=== PATIENT | male | born 1945 | race Caucasian/White ===

== ENCOUNTER 2017-11-28 14:46 | Inpatient (IN) | payer MEDICARE ==
[2017-11-28 15:08] LABS: ADD MAN DIFF? NO
[2017-11-28 15:11] LABS: BASOPHIL # 0.1 10^3/ul (0.0-0.1); BASOPHILS % 0.7 % (0.0-2.0); EOSINOPHILS # 0.1 10^3/ul (0.0-0.5); EOSINOPHILS % 1.2 % (0.0-7.0); HEMATOCRIT 31.9 % (42.0-52.0); HEMOGLOBIN 9.7 g/dl (14.0-18.0); LYMPHOCYTES # 0.9 10^3/ul (0.8-2.9); LYMPHOCYTES % 7.3 % (15.0-51.0); MEAN CORPUSCULAR HEMOGLOBIN 26.6 pg (29.0-33.0); MEAN CORPUSCULAR HGB CONC 30.4 g/dl (32.0-37.0); MEAN CORPUSCULAR VOLUME 87.6 fl (82.0-101.0); MEAN PLATELET VOLUME 11.1 fl (7.4-10.4); MONOCYTE # 0.9 10^3/ul (0.3-0.9); MONOCYTES % 7.3 % (0.0-11.0); NEUTROPHIL # 9.6 10^3/ul (1.6-7.5); PLATELET COUNT 175 10^3/UL (140-415); RED BLOOD COUNT 3.64 10^6/ul (4.70-6.10); RED CELL DISTRIBUTION WIDTH 18.1 % (11.5-14.5)
[2017-11-28 15:11] LABS: WHITE BLOOD COUNT 11.6 10^3/ul (4.8-10.8)
[2017-11-28] MEDS ORDERED: DEXTROSE 50% 50 ML SYRINGE (15:14)
[2017-11-28] MEDS: DEXTROSE 50% 50 ML SYRINGE IV (15:22)
[2017-11-28 15:26] LABS: LACTIC ACID 1.2 mmol/L (0.5-2.0)
[2017-11-28 15:28] LABS: HEMOGLOBIN A1C 6.8 % (0-5.9)
[2017-11-28 15:30] LABS: INR 1.18; PROTIME 15.2 Sec (11.9-14.9); PT RATIO 1.2
[2017-11-28 15:31] LABS: PARTIAL THROMBOPLASTIN TIME 40.4 Sec (25.0-35.0)
[2017-11-28 16:09] LABS: ALANINE AMINOTRANSFERASE 24 IU/L (13-69); ALBUMIN 3.1 g/dl (3.3-4.9); ALBUMIN/GLOBULIN RATIO 0.77; ALKALINE PHOSPHATASE 89 IU/L (42-121); ANION GAP 18 (8-16); ASPARTATE AMINO TRANSFERASE 26 IU/L (15-46); BILIRUBIN,INDIRECT 0.3 mg/dl (0-1.1); BILIRUBIN,TOTAL 0.3 mg/dl (0.2-1.3); BLOOD UREA NITROGEN 41 mg/dl (7-20); CALCIUM 8.3 mg/dl (8.4-10.2); CARBON DIOXIDE 26 mmol/L (21-31); CHLORIDE 99 mmol/L (97-110); CHOLESTEROL 67 mg/dl (100-200); CREATINE KINASE 135 IU/L (23-200); CREATININE 3.33 mg/dl (0.61-1.24); GLUCOSE 82 mg/dl (70-220); HDL CHOLESTEROL 22 mg/dl (31-75); LDL CHOLESTEROL,CALCULATED 29 mg/dl; POTASSIUM 4.7 mmol/L (3.5-5.1); SODIUM 138 mmol/L (135-144); TOTAL PROTEIN 7.1 g/dl (6.1-8.1); TRIGLYCERIDES 81 mg/dl (0-149)
[2017-11-28 16:20] LABS: CK INDEX 0.6
[2017-11-28 16:26] LABS: CK-MB 0.79 ng/ml (0.0-2.4)
[2017-11-28 16:27] LABS: TROPONIN-I 0.131 ng/ml (0.00-0.12)
[2017-11-28] MEDS: ASPIRIN 300 MG SUPP PR (17:47)
[2017-11-28 18:02] LABS: LACTIC ACID 1.1 mmol/L (0.5-2.0)
[2017-11-28] MEDS ORDERED: morphine 2 MG INJ IV (19:30)
[2017-11-28] MEDS ORDERED: ONDANSETRON 4 MG INJ IV (19:30)
[2017-11-28] MEDS ORDERED: NACL 0.9% 3 ML SYG IV (19:30)
[2017-11-28] MEDS: SOD CHLORIDE 0.45% 1,000 ML IV (19:33)
[2017-11-29] MEDS: DEXTROSE 5%-0.45% NACL 1,000 ML IV ×2 (00:24→23:34)
[2017-11-29] MEDS: HEPARIN 5,000 UNIT/0.5 ML VIAL SC ×3 (00:25→21:00)
[2017-11-29] MEDS ORDERED: GLUCAGON 1 MG INJ IM (00:30)
[2017-11-29] MEDS ORDERED: GLUCOSE GEL 15 GRAM TUBE BUCCAL (00:30)
[2017-11-29] MEDS ORDERED: DEXTROSE 50% 50 ML SYRINGE IV ×2 (00:30)
[2017-11-29] MEDS ORDERED: GLUCOSE GEL 15 GRAM TUBE PO ×2 (00:30)
[2017-11-29] MEDS: ACCU-CHEK XX (02:00)
[2017-11-29] MEDS: PANTOPRAZOLE 40 MG INJ IV (05:10)
[2017-11-29 05:50] LABS: ADD MAN DIFF? NO
[2017-11-29 05:55] LABS: WHITE BLOOD COUNT 10.4 10^3/ul (4.8-10.8)
[2017-11-29 05:55] LABS: BASOPHIL # 0.1 10^3/ul (0.0-0.1); BASOPHILS % 0.7 % (0.0-2.0); EOSINOPHILS # 0.1 10^3/ul (0.0-0.5); EOSINOPHILS % 1.1 % (0.0-7.0); HEMATOCRIT 31.1 % (42.0-52.0); HEMOGLOBIN 9.5 g/dl (14.0-18.0); LYMPHOCYTES # 0.8 10^3/ul (0.8-2.9); LYMPHOCYTES % 7.6 % (15.0-51.0); MEAN CORPUSCULAR HEMOGLOBIN 26.2 pg (29.0-33.0); MEAN CORPUSCULAR HGB CONC 30.5 g/dl (32.0-37.0); MEAN CORPUSCULAR VOLUME 85.9 fl (82.0-101.0); MEAN PLATELET VOLUME 10.9 fl (7.4-10.4); MONOCYTE # 0.8 10^3/ul (0.3-0.9); MONOCYTES % 7.7 % (0.0-11.0); NEUTROPHIL # 8.6 10^3/ul (1.6-7.5); NEUTROPHILS % 82.5 % (39.0-77.0); PLATELET COUNT 169 10^3/UL (140-415); RED BLOOD COUNT 3.62 10^6/ul (4.70-6.10); RED CELL DISTRIBUTION WIDTH 18.2 % (11.5-14.5)
[2017-11-29 06:13] LABS: HEMOGLOBIN A1C 6.3 % (0-5.9)
[2017-11-29 06:19] LABS: ANION GAP 17 (8-16); BLOOD UREA NITROGEN 43 mg/dl (7-20); CALCIUM 8.2 mg/dl (8.4-10.2); CARBON DIOXIDE 28 mmol/L (21-31); CHLORIDE 99 mmol/L (97-110); CHOLESTEROL 67 mg/dl (100-200); CREATININE 3.61 mg/dl (0.61-1.24); GLUCOSE 133 mg/dl (70-220); HDL CHOLESTEROL 22 mg/dl (31-75); LDL CHOLESTEROL,CALCULATED 31 mg/dl; MAGNESIUM 1.7 mg/dl (1.7-2.5); PHOSPHORUS 6.2 mg/dl (2.5-4.9); POTASSIUM 4.8 mmol/L (3.5-5.1); SODIUM 139 mmol/L (135-144); TRIGLYCERIDES 70 mg/dl (0-149)
[2017-11-29] MEDS ORDERED: INSULIN ASPART [NOVOLOG] 3 ML PEN SC ×2 (07:35→09:00)
[2017-11-29] MEDS: Insulin NOVOLOG SS MILD Algorithm (NPO/TPN/ENTERAL FEEDS) SC ×4 (09:38→21:00)
[2017-11-29 13:28] LABS: HEPATITIS B SURFACE ANTIGEN NEGATIVE (NEGATIVE)
[2017-11-29] MEDS ORDERED: COLLAGENASE 30 GM TUBE TOP (17:30)
[2017-11-29] MEDS: EPOETIN 10000 UNITS/1 ML INJ (ESRD) SC (17:46)
[2017-11-29] MEDS ORDERED: ALBUMIN HUMAN 25% 100 ML IV (19:00)
[2017-11-29] MEDS: HEPARIN 1000 UNITS/ML 10 ML INJ CATHETER (21:37)
[2017-11-30] MEDS: Insulin NOVOLOG SS MILD Algorithm (NPO/TPN/ENTERAL FEEDS) SC ×6 (01:21→21:38)
[2017-11-30] MEDS: ACCU-CHEK XX (02:00)
[2017-11-30 05:30] LABS: ADD MAN DIFF? NO
[2017-11-30 05:34] LABS: ABNORMAL IP MESSAGE 1; BASOPHILS % 0.3 % (0.0-2.0); EOSINOPHILS % 0.4 % (0.0-7.0); HEMATOCRIT 30.1 % (42.0-52.0); HEMOGLOBIN 9.2 g/dl (14.0-18.0); LYMPHOCYTES # 0.6 10^3/ul (0.8-2.9); LYMPHOCYTES % 5.7 % (15.0-51.0); MEAN CORPUSCULAR HEMOGLOBIN 26.2 pg (29.0-33.0); MEAN CORPUSCULAR HGB CONC 30.6 g/dl (32.0-37.0); MEAN CORPUSCULAR VOLUME 85.8 fl (82.0-101.0); MEAN PLATELET VOLUME 10.9 fl (7.4-10.4); MONOCYTE # 0.7 10^3/ul (0.3-0.9); MONOCYTES % 6.8 % (0.0-11.0); NEUTROPHIL # 8.8 10^3/ul (1.6-7.5); NEUTROPHILS % 86.4 % (39.0-77.0); PLATELET COUNT 167 10^3/UL (140-415); POSITIVE DIFF @See below; RED BLOOD COUNT 3.51 10^6/ul (4.70-6.10); RED CELL DISTRIBUTION WIDTH 18.4 % (11.5-14.5)
[2017-11-30 05:34] LABS: WHITE BLOOD COUNT 10.2 10^3/ul (4.8-10.8)
[2017-11-30 05:56] LABS: ANION GAP 17 (8-16); BLOOD UREA NITROGEN 30 mg/dl (7-20); CALCIUM 8.3 mg/dl (8.4-10.2); CARBON DIOXIDE 26 mmol/L (21-31); CHLORIDE 101 mmol/L (97-110); CREATININE 2.46 mg/dl (0.61-1.24); GLUCOSE 197 mg/dl (70-220); MAGNESIUM 1.7 mg/dl (1.7-2.5); POTASSIUM 4.6 mmol/L (3.5-5.1); SODIUM 139 mmol/L (135-144)
[2017-11-30] MEDS: PANTOPRAZOLE 40 MG INJ IV (07:02)
[2017-11-30] MEDS: COLLAGENASE 30 GM TUBE TOP (08:58)
[2017-11-30] MEDS ORDERED: BALSAM PERU/CASTOR OIL 60 GM TUBE TOP (09:00)
[2017-11-30] MEDS: HEPARIN 5,000 UNIT/0.5 ML VIAL SC ×2 (09:06→21:40)
[2017-12-01] MEDS: Insulin NOVOLOG SS MILD Algorithm (NPO/TPN/ENTERAL FEEDS) SC ×6 (01:04→21:25)
[2017-12-01] MEDS: ACCU-CHEK XX (02:00)
[2017-12-01] MEDS: DEXTROSE 5%-0.45% NACL 1,000 ML IV (04:16)
[2017-12-01] MEDS: PANTOPRAZOLE 40 MG INJ IV (05:27)
[2017-12-01 07:14] LABS: ADD MAN DIFF? NO
[2017-12-01 07:52] LABS: ANION GAP 18 (8-16); BLOOD UREA NITROGEN 34 mg/dl (7-20); CALCIUM 8.4 mg/dl (8.4-10.2); CARBON DIOXIDE 25 mmol/L (21-31); CHLORIDE 102 mmol/L (97-110); CREATININE 2.56 mg/dl (0.61-1.24); GLUCOSE 181 mg/dl (70-220); MAGNESIUM 1.7 mg/dl (1.7-2.5); PHOSPHORUS 4.9 mg/dl (2.5-4.9); POTASSIUM 4.2 mmol/L (3.5-5.1); SODIUM 141 mmol/L (135-144)
[2017-12-01 08:23] LABS: WHITE BLOOD COUNT 8.4 10^3/ul (4.8-10.8)
[2017-12-01 08:23] LABS: BASOPHILS % 0.2 % (0.0-2.0); EOSINOPHILS # 0.1 10^3/ul (0.0-0.5); HEMATOCRIT 31.6 % (42.0-52.0); HEMOGLOBIN 9.6 g/dl (14.0-18.0); LYMPHOCYTES # 0.8 10^3/ul (0.8-2.9); LYMPHOCYTES % 9.4 % (15.0-51.0); MEAN CORPUSCULAR HEMOGLOBIN 26.4 pg (29.0-33.0); MEAN CORPUSCULAR HGB CONC 30.4 g/dl (32.0-37.0); MEAN CORPUSCULAR VOLUME 87.1 fl (82.0-101.0); MEAN PLATELET VOLUME 10.1 fl (7.4-10.4); MONOCYTE # 0.7 10^3/ul (0.3-0.9); MONOCYTES % 8.3 % (0.0-11.0); NEUTROPHIL # 6.8 10^3/ul (1.6-7.5); NEUTROPHILS % 80.7 % (39.0-77.0); PLATELET COUNT 157 10^3/UL (140-415); RED BLOOD COUNT 3.63 10^6/ul (4.70-6.10); RED CELL DISTRIBUTION WIDTH 18.4 % (11.5-14.5)
[2017-12-01] MEDS: COLLAGENASE 30 GM TUBE TOP ×2 (08:51→14:30)
[2017-12-01] MEDS: HEPARIN 5,000 UNIT/0.5 ML VIAL SC ×2 (08:55→21:27)
[2017-12-01] MEDS: ALTEPLASE (CATHFLO) 2 MG INJ CATHETER ×2 (17:40→17:41)
[2017-12-01] MEDS: EPOETIN 10000 UNITS/1 ML INJ (ESRD) SC (17:42)
[2017-12-01] MEDS: BALSAM PERU/CASTOR OIL 60 GM TUBE TOP (21:23)
[2017-12-02] MEDS: Insulin NOVOLOG SS MILD Algorithm (NPO/TPN/ENTERAL FEEDS) SC ×6 (01:12→21:42)
[2017-12-02] MEDS: ACCU-CHEK XX (02:00)
[2017-12-02] MEDS: COLLAGENASE 30 GM TUBE TOP ×2 (02:24→08:30)
[2017-12-02] MEDS: PANTOPRAZOLE 40 MG INJ IV (05:30)
[2017-12-02] MEDS: DEXTROSE 5%-0.45% NACL 1,000 ML IV ×2 (05:35→19:52)
[2017-12-02] MEDS: HEPARIN 5,000 UNIT/0.5 ML VIAL SC ×2 (08:28→21:39)
[2017-12-02] MEDS: BALSAM PERU/CASTOR OIL 60 GM TUBE TOP ×2 (08:29→21:39)
[2017-12-03] MEDS: Insulin NOVOLOG SS MILD Algorithm (NPO/TPN/ENTERAL FEEDS) SC ×6 (01:15→20:59)
[2017-12-03] MEDS: ACCU-CHEK XX (01:16)
[2017-12-03] MEDS: PANTOPRAZOLE 40 MG INJ IV (05:12)
[2017-12-03] MEDS: BALSAM PERU/CASTOR OIL 60 GM TUBE TOP ×2 (09:55→21:01)
[2017-12-03] MEDS: COLLAGENASE 30 GM TUBE TOP (09:55)
[2017-12-03] MEDS: HEPARIN 5,000 UNIT/0.5 ML VIAL SC ×2 (10:01→20:58)
[2017-12-03 10:08] LABS: ADD MAN DIFF? NO
[2017-12-03 10:11] LABS: WHITE BLOOD COUNT 6.3 10^3/ul (4.8-10.8)
[2017-12-03 10:11] LABS: BASOPHILS % 0.3 % (0.0-2.0); EOSINOPHILS # 0.2 10^3/ul (0.0-0.5); EOSINOPHILS % 2.4 % (0.0-7.0); HEMATOCRIT 32.8 % (42.0-52.0); HEMOGLOBIN 9.9 g/dl (14.0-18.0); LYMPHOCYTES # 0.8 10^3/ul (0.8-2.9); LYMPHOCYTES % 11.9 % (15.0-51.0); MEAN CORPUSCULAR HEMOGLOBIN 26.1 pg (29.0-33.0); MEAN CORPUSCULAR HGB CONC 30.2 g/dl (32.0-37.0); MEAN CORPUSCULAR VOLUME 86.5 fl (82.0-101.0); MEAN PLATELET VOLUME 10.7 fl (7.4-10.4); MONOCYTE # 0.5 10^3/ul (0.3-0.9); MONOCYTES % 7.8 % (0.0-11.0); NEUTROPHIL # 4.9 10^3/ul (1.6-7.5); NEUTROPHILS % 77.3 % (39.0-77.0); PLATELET COUNT 129 10^3/UL (140-415); RED BLOOD COUNT 3.79 10^6/ul (4.70-6.10); RED CELL DISTRIBUTION WIDTH 18.6 % (11.5-14.5)
[2017-12-03 10:40] LABS: ANION GAP 13 (8-16); BLOOD UREA NITROGEN 32 mg/dl (7-20); CALCIUM 8.5 mg/dl (8.4-10.2); CARBON DIOXIDE 28 mmol/L (21-31); CHLORIDE 104 mmol/L (97-110); CREATININE 2.12 mg/dl (0.61-1.24); GLUCOSE 199 mg/dl (70-220); MAGNESIUM 1.5 mg/dl (1.7-2.5); PHOSPHORUS 3.9 mg/dl (2.5-4.9); POTASSIUM 4.2 mmol/L (3.5-5.1); SODIUM 141 mmol/L (135-144)
[2017-12-03] MEDS: EPOETIN 10000 UNITS/1 ML INJ (ESRD) SC (16:48)
[2017-12-03] MEDS: DEXTROSE 5%-0.45% NACL 1,000 ML IV (19:51)
[2017-12-04] MEDS: Insulin NOVOLOG SS MILD Algorithm (NPO/TPN/ENTERAL FEEDS) SC ×6 (01:50→20:49)
[2017-12-04] MEDS: ACCU-CHEK XX (02:00)
[2017-12-04] MEDS: PANTOPRAZOLE 40 MG INJ IV (05:37)
[2017-12-04] MEDS: HEPARIN 5,000 UNIT/0.5 ML VIAL SC ×2 (08:06→20:50)
[2017-12-04] MEDS: COLLAGENASE 30 GM TUBE TOP (09:00)
[2017-12-04] MEDS: BALSAM PERU/CASTOR OIL 60 GM TUBE TOP ×2 (12:25→20:50)
[2017-12-04] MEDS: DEXTROSE 5%-0.45% NACL 1,000 ML IV (18:43)
[2017-12-05] MEDS: Insulin NOVOLOG SS MILD Algorithm (NPO/TPN/ENTERAL FEEDS) SC ×5 (00:43→17:00)
[2017-12-05] MEDS: ACCU-CHEK XX (02:00)
[2017-12-05] MEDS: PANTOPRAZOLE 40 MG INJ IV (05:24)
[2017-12-05] MEDS: HEPARIN 5,000 UNIT/0.5 ML VIAL SC ×2 (08:40→21:33)
[2017-12-05] MEDS: COLLAGENASE 30 GM TUBE TOP (08:42)
[2017-12-05] MEDS: BALSAM PERU/CASTOR OIL 60 GM TUBE TOP ×2 (08:43→21:33)
[2017-12-06] MEDS: PANTOPRAZOLE 40 MG INJ IV (05:05)
[2017-12-06] MEDS: BALSAM PERU/CASTOR OIL 60 GM TUBE TOP (08:36)
[2017-12-06] MEDS: COLLAGENASE 30 GM TUBE TOP (08:36)
[2017-12-06] MEDS: HEPARIN 5,000 UNIT/0.5 ML VIAL SC (08:38)
[2017-12-06] MEDS: EPOETIN 10000 UNITS/1 ML INJ (ESRD) SC (17:00)
== END 2017-12-06 17:10 | disposition hospice, inpatient (51) | DRG 64 ==
LOC: PP2 12-01 18:20 → E/R 14:46 → PP2 11-30 14:24 → ICU 19:16
PROC: 5A1D70Z Performance of Urinary Filtration, Intermittent, Less than 6 Hours Per Day (ICD-10-PCS; principal; 2017-11-29)
DX: I63.412 Cerebral infarction due to embolism of left middle cerebral artery (principal); I21.A1 Myocardial infarction type 2; G93.49 Other encephalopathy; L89.213 Pressure ulcer of right hip, stage 3; N18.6 End stage renal disease; R13.10 Dysphagia, unspecified; I12.0 Hypertensive chronic kidney disease with stage 5 chronic kidney disease or end stage renal disease; Z68.41 Body mass index [BMI] 40.0-44.9, adult; G81.91 Hemiplegia, unspecified affecting right dominant side; R47.01 Aphasia; R29.732 NIHSS score 32; E66.01 Morbid (severe) obesity due to excess calories; Z99.2 Dependence on renal dialysis; E11.22 Type 2 diabetes mellitus with diabetic chronic kidney disease; I73.9 Peripheral vascular disease, unspecified; E83.39 Other disorders of phosphorus metabolism; Z66 Do not resuscitate; R60.1 Generalized edema; R53.81 Other malaise; I48.91 Unspecified atrial fibrillation; D63.1 Anemia in chronic kidney disease; Z79.01 Long term (current) use of anticoagulants; Z86.73 Personal history of transient ischemic attack (TIA), and cerebral infarction without residual deficits; Z89.412 Acquired absence of left great toe
CPT/HCPCS: 70450; 71045; 80048; 80053; 80061; 82550; 82553; 82962; 83036; 83605; 83735; 84100; 84484; 85025; 85610; 85730; 87040; 87081; 87340; 90935; 92610; 93005; 93306; 93880; 96374; 99291-25